=== PATIENT | male | born 1990 | race Asian ===

== ENCOUNTER 2018-07-05 18:22 | Emergency (ER) | payer OTHER ==
[~2018-07-05] VITALS: Ht 175.3 cm; Wt 84.5 kg
[~2018-07-05 18:22] MED LIST: FAMO10TA84 PO
[2018-07-05 18:27] VITALS: Ht 175.3 cm; Wt 84.5 kg
[2018-07-05] MEDS ORDERED: ACETAMINOPHEN 325 MG TAB PO ONE (20:30)
[2018-07-05] MEDS ORDERED: IBUPROFEN 600 MG TAB PO ONE (20:30)
[2018-07-05] MEDS ORDERED: ACET-141 PO (21:07)
[2018-07-05] MEDS ORDERED: OSEL75CA23 PO (21:07)
[2018-07-05] MEDS ORDERED: IBUP-1561 PO (21:07)
--- NOTE | 2018-07-05 21:14 | ERD ---
ER Documentation Chief Complaint Chief Complaint sore throat/fever/lower back pain x 1 day HPI 28-year-old male presents for fever and sore throat times 1 day. He denies cough. He states that the pain is 6 out of 10, constant. Also states that he has body aches. Otherwise denies chest pain or shortness of breath, denies abdominal pain, nausea, vomiting. No treatments tried at home. ROS All systems reviewed and are negative except as per history of present illness. Medications Home Meds Active Scripts Oseltamivir Phosphate* (Tamiflu*) 75 Mg Capsule, 75 MG PO BID for flu for 5 Days, #10 CAP Prov:YUNIEL BAEZ DO 07/05/18 Ibuprofen* (Motrin*) 400 Mg Tab, 400 MG PO Q6H PRN for PAIN AND OR ELEVATED TEMP, #30 TAB Prov:YUNIEL BAEZ DO 07/05/18 Acetaminophen* (Acetaminophen*) 500 MG Extra Strength Tablet, 500 MG PO Q4H PRN for PAIN AND OR ELEVATED TEMP, #30 TAB Prov:YUNIEL BAEZ 07/05/18 Famotidine* (Famotidine*) 10 Mg Tablet, 10 MG PO BID PRN for gerd, #60 TAB Prov:YUNIEL BAEZ DO 05/08/18 Allergies Allergies: Coded Allergies: No Known Allergy (Unverified , 05/08/18) PMhx/Soc Medical and Surgical Hx: pt denies Medical Hx, pt denies Surgical Hx Hx Alcohol Use: Yes (used to drink alcohol) Hx Substance Use: No Hx Tobacco Use: No Smoking Status: Never smoker Physical Exam Vitals Vital Signs Date Temp Pulse Resp B/P (MAP) Pulse Ox O2 O2 Flow FiO2 Time Delivery Rate 07/05/18 101.5 20:18 07/05/18 101.5 20:18 07/05/18 102.6 100 20 135/80 100 18:27 (98) Physical Exam Const: No acute distress Head: Atraumatic Eyes: Normal Conjunctiva ENT: Normal External Ears, bilateral tympanic membrane intact without erythema or bulging noted, nose and Mouth examination normal, no tonsillar swelling or exudate noted Neck: Full range of motion. No meningismus. Resp: Clear to auscultation bilaterally, no wheezing, rales, rhonchi Cardio: Regular rate and rhythm, no murmurs Skin: No petechiae or rashes Ext: No cyanosis, or edema Neur: Awake and alert Psych: Normal Mood and Affect Results 24 hrs Current Medications Medications Dose Sig/Maranda Start Time Status Last (Trade) Ordered Route PRN Stop Time Admin Dose Reason Admin 650 mg ONCE ONCE 07/05/18 DC 07/05/18 Acetaminophen PO 20:30 07/05/18 20:18 (Tylenol 20:31 Tab) Ibuprofen 600 mg ONCE ONCE 07/05/18 DC 07/05/18 (Motrin) PO 20:30 07/05/18 20:18 20:31 Procedures/MDM Medical Decision Making: Differential diagnosis includes but not limited to upper respiratory infection, pneumonia, sepsis, meningitis, influenza, strep pharyngitis. Patient appeared well on physical examination, nontoxic appearing. Lungs were clear to auscultation bilaterally. There is low suspicion for pneumonia, sepsis, meningitis. Given the patient had fever no cough and sore throat, he meets 2 out of the 4 [facility] criteria therefore a rapid strep test was done. Rapid strep test was negative Patient will be treated empirically for influenza Patient given prescription for supportive medication(s) and Tamiflu Patient advised to follow up with PCP in 1-2 days. Patient advised to return to ED for new or worsening symptoms. Patient stable on discharge from the ED. Disclaimer: Inadvertent spelling and grammatical errors are likely due to EHR/dictation software use and do not reflect on the overall quality of patient care. Also, please note that the electronic time recorded on this note does not necessarily reflect the actual time of the patient encounter. Departure Diagnosis: Primary Impression: Fever Fever type: unspecified Qualified Codes: R50.9 - Fever, unspecified Additional Impression: Sore throat Condition: Fair Patient Instructions: Self-Care for Sore Throats, Fever Control (Adult) Additional Instructions: Call your primary care doctor TOMORROW for an appointment during the next 1-2 days.See the doctor sooner or return here if your condition worsens before your appointment time. YUNIEL BAEZ DO Jul 05, 2018 21:14
[2018-07-05 21:19] VITALS: BP 118/76; PULSE 87; RESP 18
== END 2018-07-05 21:21 | disposition home or self-care (01) ==
LOC: FTE 18:22
DX: J02.9 Acute pharyngitis, unspecified (principal)
CPT/HCPCS: 87880; Z7610; 99283